=== PATIENT | female | born 1980 | race Caucasian/White ===

== ENCOUNTER 2024-12-21 07:14 | Emergency (ER) | payer OTHER, SELFPAY ==
--- OUTSIDE RECORDS SUMMARY | 2024-12-21 07:16 | XMS_ITS | Clinical Summary ---
Author Organization [employer] [facility] Address [address] [place] [address] Care Team Providers Care Type Inspector Name Role Phone Filomena Donaldson MD Primary Care Provider [phone] Allergies Active Allergy Reactions Criticality Noted Date Comments Bupropion Rash 09/16/2006 Medications No known medications Active Problems Problem Noted Date Diagnosed Date Seasonal allergies 01/04/2015 Resolved Problems Problem Noted Date Diagnosed Date Resolved Date Routine general medical exam ination at a health care facility 08/28/2013 12/02/2018 Supervision of other normal 11/13/2012 08/28/2013 Overview (02/04/2013): Planned and happy. 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 07/03/2007 3 Depressive disorder, not elsewhere classified 09/16/19 07 09/17/2006 Immunizations Immunization Administration Dates Next Due Influenza A (H1N1), Inactivated 07/03/2009 Influenza, IIV3 (Age >=3 years) 06/09/20 13,07/06/2012,07/03/2010,06/12/2009, 07/13/2008,07/01/2007,07/21/2006 Influenza, IIV4 07/25/2022, 1,07/14/2016,07/05/2015, 07/05/2014 Td (Age >=7 Years) 05/19/1997 Tdap 07/02/2021,01/01/2011 Family History Medical History Relation Name Comments Arthritis Father Ankylosing Spon dylitis Cancer-prostate Father Hypertension Mother Ankylosing spondylitis Sister Relation Name Status Comments Brother Alive Daughter 1 Alive Daughter 2 Alive Father Alive Mother Alive Sister Alive x3 Social History Tobacco Use Types Packs/Day Years Used Date Smoking Tobacco: Never Smokeless Tobacco: Never Tobacco Cessation:Counseling Given: Yes Alcohol Use Standard Drinks/Week Comments Yes 2 (1 standard drink = 0.6 oz pur e alcohol) occassionally PHQ-2 Answer Date Recorded PHQ-2 TOTAL SCORE 0 03/14/2024 Social Connections Answer Date Recorded Frequency of Communication with Friends and Fami ly Not on file 09/07/2021 Financial Resource Strain Answer Date R ecorded Difficulty of Paying Living Expenses Not on file 09/07/2021 Difficulty of Paying Living Expenses Not on file 09/07/2021 Comments No Sex and Gender Information Value Date Recorded Sex Assigned at Not on file Legal Sex Female 5:47 AM MANUFACTURING TEAM MEMBER Gender Identity Not on file Sexual Orientation Not on file Occupation Industry Job Start Date Job End Date Not on file Not on file Not on file Not on file Obstetrics History Para Term AB IAB SAB Ectopic Multiple Livin g Live Births 4 3 3 1 1 3 4 Date Outcome GA Total Labor Labor/2nd/3rd Weight Sex Type Anes PTL [place] A1 A5 Name Clin 2006 Term 39w 0d 3.69 kg (8 lb 2 oz) F Vag Epidur al Livin g 8 9 [place] Delivery Location:[facility] 2008 Term 40w 0d 3.66 kg (8 lb 1 oz) F Vag-V acuum Epidur al Livin g 8 9 Ashleigh McInt [place]re Delivery Location:[facility] 2011 SAB 6w0 d Decea sed 2012 Term 39w 2d 3.97 kg (8 lb 12 oz) M Vag Epidur al Livin g 8 9 Gaurav Mc[place] Delivery Location:[facility] Comments:System [employer]. Please review and update details. Last Filed Vital Signs Vital Sign Reading Time Taken Comments Blood Pressure 100/60 03/14/2024 9:51 AM CDT Pulse 60 03/14/2024 9:51 AM CDT Temperature 37 C (98.6 F) 12/09/2021 6:12 PM CDT Respiratory Rate 16 12/09/2021 6:12 PM CDT Oxygen Saturation 99% 12/09/2021 6:12 PM CDT Inhaled Oxygen Concentration - - Weight 63.2 kg (139 lb 4.8 oz) 03/14/2024 9:51 A M CDT Height 167.6 cm (5' 6) 03/14/2024 9:51 AM CDT Body Mass Index 22.48 03/14/2024 9:51 AM CDT Plan of Treatment Health Maintenance Due Date Last Done Comments Hepatitis C screening for age 18-79 1997 COVID-19 vaccine series ( season) 2024 10/17/2022, 08/15/2021, 01/25/2021, Additional history exists Colonoscopy through age 75 2024 Lipids for age 45-75 2024 10/22/2017, 01/21/2012, 12/16/2007 Mammogram for age 45-75 01/04/2025 01/05/20 24, 08/28/2022, 08/06/2021, Additional history exists BMI (ht and wt on same day) for age 18+ 03/14/2025 03/14/2024, 08/28/2022, 07/02/2021, Additional history exists Depression screening for age 12+ 03/14/2025 03/14/2024, 08/28/2022, 07/02/2021, Additional history exists Influenza Vaccine (Season Ended) 2025 07/25/2022, 07/02/2021, 07/14/2016, Additional history exists Pap test for age 21-65 07/02/2026 , 07/02/2021, 10/22/2017, Additional history exists Tetanus booster 07/02/2031 07/02/2021, 12/07, 05/19/1997 HIV for age 15-65 Completed 12/22/2012, 12/08/2008 Tdap Completed 07/02/2021, 01/01/2011 Pneumococcal series for age 6-49 Aged Out No longer eligible based on patient's age to complete this topic Procedures Procedure Name Priority Date/Time Associated Diagnosis Comments XR MAMMO MOHINDER BILAT SCREEN Routine 01/05/2024 9:08 AM CDT Breast cancer screening HPV HIGH RISK Routine 07/02/2021 10:40 AM CDT Screening for cervical cancer LIPID PANEL Routine 10/22/2017 3:50 PM MANUFACTURING TEAM MEMBER Well woman exam ANTI HIV 1/2 Routine 12/22/2012 12:53 PM CDT Supervision of other normal (HC) from Last 3 Months or Most Recently Relevant to Health Maintenance Results * XR MAMMO MOHINDER BILAT SCREEN (01/05/2024 9:08 AM CDT) Anatomical Region Laterality Modality BREASTS, Breast Left, Breast Right Bilateral Mammography Impressions 01/05/2024 9:18 AM CDT There is no radiographic evidence for malignancy. Recommend annual mammograms. MAMMOGRAM ASSESSMENT: ACR 2 Benign PATIENTS: You will also receive a letter with your examination results in an easy to read format. If you have questions about your results, please contact your referring provider. Narrative 01/05/2024 9:18 AM CDT For Patients: As a result of the Century Cures Act, medical imaging exams and procedure reports are released immediately into your electronic medical record. You may view this report before your referring provider. If you have questions, please contact your health care provider. XR MAMMO MOHINDER BILAT SCREEN [[id number]] CLINICAL HISTORY: This is an asymptomatic 43 y.o. patient. INDICATION FOR EXAM: Mammogram Screening. TECHNIQUE: CC & MLO views were obtained. This study was evaluated with the assistance of Computer-Aided Detection. Breast Tomosynthesis was used in interpretation. COMPARISON FILMS: Yes 08/28/22 [facility] FINDINGS: The breasts are extremely dense, which lowers the sensitivity of mammography. No suspicious masses or microcalcifications. There are benign appearing mass(es). us Filomena Donaldson MD MAMMO Final Result * HPV HIGH RISK (07/02/2021 10:40 AM CDT) TYPE 16 Negative Negative 07/04/2021 11:32 AM CDT [facility] TYPE 18 Negative Negative 07/04/2021 11:32 AM CDT [facility] OTHER HIGH RISK TYPES Negative Negative 07/04/2021 11:32 AM CDT [facility] Other (Cervical) Non-Blood / Unknown 07/02/2021 10:40 AM CDT 07/02/2021 5:25 PM CDT Narrative [facility] - 07/04/2021 11:32 AM CDT HPV types 16, 18, 31, 33, 35, 39, 45, 51, 52, 56, 58, 59, 66 and 68 DNA were undetectable or below the pre-set threshold. Methodology: [employer] Joseph 4800 HPV Test us Zee Contreras MD MICROBIOLOGY Final Resul t [facility] [address] [place] [address], [place] * LIPID PANEL (10/22/2017 3:50 PM MANUFACTURING TEAM MEMBER) CHOLESTEROL,TOTAL 162 100 - 199 mg/dL 10/22/2017 4:38 PM MANUFACTURING TEAM MEMBER [facility] TRIGLYCERIDES 75 <150 mg/dL 10/22/2017 4:38 PM MANUFACTURING TEAM MEMBER [facility] HDL CHOLESTEROL 58 >40 mg/dL 8 4:38 PM MANUFACTURING TEAM MEMBER [facility] NON-HDL CHOLESTEROL 104 <145 mg/dl 10/22/2017 4:38 PM MANUFACTURING TEAM MEMBER [facility] CHOL/HDL RATIO 2.79 <4.50 10/22/2017 4:38 PM MANUFACTURING TEAM MEMBER [facility] LDL CHOLESTEROL 89 <=130 mg/dL 10/22/2017 4:38 PM MANUFACTURING TEAM MEMBER [facility] PROVIDER ORDERED STATUS RANDOM 10/22/2017 4:38 PM MANUFACTURING TEAM MEMBER [facility] Blood BLOOD SPECIMEN / Unknown Venipuncture / Unknown 10/22/2017 3:50 PM MANUFACTURING TEAM MEMBER 10/22/2017 3:50 PM MANUFACTURING TEAM MEMBER us Filomena Donaldson MD CHEMISTRY Final Result [address] [address] * ANTI HIV 1/2 (12/22/2012 12:53 PM CDT) ANTI HIV 1/2 Non-reacti ve [facility] Blood specimen (specimen) BLOOD SPECIMEN / Unknown 12/22/2012 12:53 PM CDT 12/22/2012 12:44 PM CDT us Don Ferguson MD SEND OUTS Final Re sult [facility] [place]NAL ZIP [id number] [place] [phone] from Last 3 Months or Most Recently Relevant to Health Maintenance Insurance COSMETIC PROCEDURE HB ONLY . [place]: [place] [address] [facility] INDIVIDUAL AND FAMILY PLANS [employer] DEPT [address] [place] [phone] Advance Directives * Full Code (Latest Code Status on File) Date Activated Date Inactivated Comments 07/19/2018 6:17 AM 07/20/2018 2:29 AM Question Answer Comments Code Status Discussion: Discussed Care Teams Type Inspector Relationship Specialty Start Date End Date Filomena Donaldson MD [address] [facility] [place] [address] PCP - General Family Practice 03/03/14
[2024-12-21 07:32] VITALS: BP 120/77; PULSE 74; RESP 20; TEMP 36.8; O2SAT 98; BMI 21.5
--- NOTE | 2024-12-21 08:02 | ED.GENADULT ---
HPI - General Adult General Time Seen by Provider: 08:02 Date Seen: 12/21/24 Chief complaint: Neuro Symptoms/Altered Deficit Stated complaint: L side face numb Time Seen by Provider: 12/21/24 08:01 Source: patient and RN notes reviewed Mode of arrival: ambulatory Limitations: no limitations History of Present Illness HPI narrative: This 44-year-old female states she awoke with left-sided facial numbness and feeling of swelling on that side. She has a reabsorbed tooth somewhere in her mouth, not sure if it is on that side. She states she has bad teeth and does need to get a follow-up with a dentist. However, she is having absolutely no dental pain. She has no ear pain, no facial pain, no headache. There has been no fevers or chills. There is family stress, she admits she has not been sleeping well, she is tired. When she went to bed at 8:45 a.m. last night, she was fine. She is covering her face, I asked her again if she is having pain. She states her eye is not blinking and it is bothering her. Related Data Previous Rx's ?Medication ?Instructions ?Recorded prednisone 20 mg tablet 60 mg (3 x 20 mg) PO DAILY 7 days 12/21/24 #21 tabs valacyclovir 1 gram tablet 1,000 mg PO TID 7 days #21 tabs 12/21/24 Allergies Allergy/AdvReac Type Severity Reaction Status Date / Time No Known Drug Allergies Allergy Verified 12/21/24 07:31 Review of Systems Narrative: As per HPI. PFS PFS Social History Smoking Status: Never smoker Do you use any of these nicotine containing products: None Second hand tobacco smoke exposure: No How often do you have a drink containing alcohol: monthly or less How many standard drinks containing alcohol do you have on a typical day: 1 or 2 How often do you have six or more drinks on one occasion: Never AUDIT-C Alcohol total score: 1 Non-prescribed substance use: denies use service: No Exam Const: Vital Signs, click to edit/add: Vital Signs - 24 hr 12/21/24 07:32 Temperature 98.3 F Pulse Rate [Pulse Oximeter] 74 Respiratory Rate 20 Blood Pressure [Ri ght Upper Arm] 120/77 Pulse Oximetry 98 Oxygen Delivery Me thod Room Air Patient is alert, interactive, no apparent distress. Speech is normal, ambulatory into the ED of her own accord. She does not have any noted facial swelling, there is very definite left facial drooping. When she smiles the left corner of her mouth stays down. Oropharynx with normal mucosa, no exudates erythema, dentition looked to be in good repair, do not see any erythema or swelling, no broken teeth that are concerning. Posterior pharynx is normal. Tongue protrudes midline. TMs and canals are normal, no evidence of any infection or abnormality. She can close her eyes but when watching her, she has no blink reflex on the left at all. Pupils are equal round, sclera clear, extraocular muscles intact. Documenting provider has reviewed patient's vital signs: yes Course Course ED Course: Did discuss with ENT Dr. Mcbride. He will see her next week. He reviewed the imperative part of eye care with this, reviewed with him that it RT started discussing this with her. He does recommend that she be followed by Optometry and I will pass this on to her. He will see her in follow-up next Thursday at 10:00 a.m. here in [place]. Did review this with patient. She states she is feeling tense, feeling a little right sided headache coming on, her did want some Tylenol here and will give her 1000 mg orally. Did review that she might need some Tylenol through this with prednisone use, sometimes people will gets headaches at high dose prednisone. Her eye is bothering her because it is not blinking, we will patch her eye shut here now. They will contact [facility] where they have gone before to get a follow-up. 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 Some people can have chronic deficits but statistically the majority improve. Vital Signs Vital signs: Initial Vital Signs Temperature 98.3 F 12/21/24 07:32 Temperature Source Temporal Artery Scan 12/21/24 07:32 Pulse Rate 74 12/21/24 07:32 Pulse Rhythm Regular 12/21/24 07:32 Respiratory Rate 20 12/21/24 07:32 Blood Pressure 120/77 12/21/24 07:32 Blood Pressure Mean 91 12/21/24 07:32 Blood Pressure Position Supine 12/21/24 07:32 Pulse Oximetry 98 12/21/24 07:32 Oxygen Delivery Method Room Air 12/21/24 07:32 Vital Signs Temperature 98.3 F 12/21/24 07:32 Pulse Rate 74 12/21/24 07:32 Respiratory Rate 20 12/21/24 07:32 Blood Pressure 120/77 12/21/24 07:32 Pulse Oximetry 98 12/21/24 07:32 Oxygen Delivery Method Room Air 12/21/24 07:32 Temperature 98.3 F 12/21/24 07:32 Pulse Rate 74 12/21/24 07:32 Respiratory Rate 20 12/21/24 07:32 Blood Pressure 120/77 12/21/24 07:32 Pulse Oximetry 98 12/21/24 07:32 Oxygen Delivery Method Room Air 12/21/24 07:32 Medications Administered Medications: Discontinued Medications Generic Name Dose Route Start Last Admin Trade Name Talon PRN Reason Stop Dose Admin Acetaminophen 1,000 mg 12/21/24 08:25 12/21/24 08:38 Acetaminophen 500 Mg Tablet PO 12/21/24 08:26 1,000 mg ONCE ONE Administration Discharge Plan 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 Need to follow up with eddy current inspector for ongoing eye care through this. It is imperative to use lubricating eye drops or ointment every hour or more frequently as needed during the day. You should tape or patch your eye shut at night to make sure it is staying shut. There can be complications and corneal damage if diligent eye care is not observed through this. Dr. Mcbride will see you in [place] here at the clinic at 10am next ThursdayDecember 28. If you are having problems sleeping or insomnia on the prednisone, can try some Tylenol p.m. or sleep aid of choice. We will contact you if the Lyme should come back positive and require treatment. Activity Level: Activity as Tolerated Prescriptions: New prednisone 20 mg tablet 60 mg PO DAILY 7 Days Qty: 21 0RF valacyclovir 1 gram tablet 1,000 mg PO TID 7 Days Qty: 21 0RF Stand Alone Forms: [employer]igating [employer] Info Instructions
--- OUTSIDE RECORDS SUMMARY | 2024-12-21 08:28 | XMS_ITS | Clinical Summary ---
Author Organization [employer] [facility] [employer] [facility] Address [address] [place] [address] Care Team Providers Care Sales Operations Coordinator Name Role Phone Filomena Donaldson MD Primary Care Provider Allergies Active Allergy Reactions Criticality Noted Date [...] on file Legal Sex Female 5:47 AM COMPUTER SECURITY MANAGER Gender Identity Not on file Sexual Orientation [...] g 8 9 [place] Delivery Location:[facility] 2008 Term 40w 0d 3.66 kg (8 lb 1 oz) F Vag-V acuum Epidur al Livin g 8 9 Ashleigh [place] Delivery Location:[facility] 2011 SAB 6w0 d Decea sed 2012 Term 39w 2d 3.97 kg (8 lb 12 oz) M Vag Epidur al Livin g 8 9 Gaurav [place] Delivery Location:[facility] Comments:System [employer]. Please review and update [...] cancer LIPID PANEL Routine 10/22/2017 3:50 PM COMPUTER SECURITY MANAGER Well woman exam ANTI HIV 1/2 Routine [...] care provider. XR MAMMO MOHINDER BILAT SCREEN [[id number]] CLINICAL HISTORY: This is an asymptomatic 43 [...] 16 Negative Negative 07/04/2021 11:32 AM CDT [facility] TYPE 18 Negative Negative 07/04/2021 11:32 AM CDT [facility] OTHER HIGH RISK TYPES Negative Negative 07/04/2021 11:32 AM CDT [facility] Other (Cervical) Non-Blood / Unknown 07/02/2021 10:40 AM CDT 07/02/2021 5:25 PM CDT Narrative [facility] - 07/04/2021 11:32 AM CDT HPV types 16, 18, 31, 33, 35, 39, 45, 51, 52, 56, 58, 59, 66 and 68 DNA were undetectable or below the pre-set threshold. Methodology: [employer] Joseph 4800 HPV Test us Zee Contreras MD MICROBIOLOGY Final Resul t [facility] [address] [place] [address], [place] * LIPID PANEL (10/22/2017 3:50 PM COMPUTER SECURITY MANAGER) CHOLESTEROL,TOTAL 162 100 - 199 mg/dL 10/22/2017 4:38 PM COMPUTER SECURITY MANAGER [facility] TRIGLYCERIDES 75 <150 mg/dL 10/22/2017 4:38 PM COMPUTER SECURITY MANAGER [facility] HDL CHOLESTEROL 58 >40 mg/dL 8 4:38 PM COMPUTER SECURITY MANAGER [facility] NON-HDL CHOLESTEROL 104 <145 mg/dl 10/22/2017 4:38 PM COMPUTER SECURITY MANAGER [facility] CHOL/HDL RATIO 2.79 <4.50 10/22/2017 4:38 PM COMPUTER SECURITY MANAGER [facility] LDL CHOLESTEROL 89 <=130 mg/dL 10/22/2017 4:38 PM COMPUTER SECURITY MANAGER [facility] PROVIDER ORDERED STATUS RANDOM 10/22/2017 4:38 PM COMPUTER SECURITY MANAGER [facility] Blood BLOOD SPECIMEN / Unknown Venipuncture / Unknown 10/22/2017 3:50 PM COMPUTER SECURITY MANAGER 10/22/2017 3:50 PM COMPUTER SECURITY MANAGER us Filomena Donaldson MD CHEMISTRY Final Result [address] [address] * ANTI HIV 1/2 (12/22/2012 12:53 PM CDT) ANTI HIV 1/2 Non-reacti ve [facility] Blood specimen (specimen) BLOOD SPECIMEN / Unknown 12/22/2012 12:53 PM CDT 12/22/2012 12:44 PM CDT us Don Ferguson MD SEND OUTS Final Re sult [facility] [place]NAL ZIP [id number] [place] [phone] from Last 3 Months or Most Recently Relevant to Health Maintenance Insurance COSMETIC PROCEDURE HB ONLY . [place]: [place] [address] [facility] INDIVIDUAL AND FAMILY PLANS [employer] DEPT [address] [place] [phone] Advance Directives * Full Code (Latest Code Status on File) Date Activated Date Inactivated Comments 07/19/2018 6:17 AM 07/20/2018 2:29 AM Question Answer Comments Code Status Discussion: Discussed Care Teams Sales Operations Coordinator Relationship Specialty Start Date End Date Filomena Donaldson MD [address] [facility] [place] [id number] PCP - General Family Practice 03/03/14
[2024-12-21] MEDS: ACETAMINOPHEN 500 MG TABLET 1000 MG PO (08:38)
[2024-12-22 13:23] LABS: Lyme ELISA Reflex 0.26 IV (<=0.90)
== END 2024-12-21 08:54 | disposition home or self-care (01) ==
LOC: ED 08:26
PROVIDERS: Emergency Provider Family Medicine; PCP Family Medicine
DX: G51.0 Bell's palsy (principal); R51.9 Headache, unspecified
CPT/HCPCS: 36415; 86618; 99283; 99284; A9270